=== PATIENT | male | born 1990 | race Hispanic/Latino ===

== ENCOUNTER 2020-05-26 02:28 | Emergency (ER) | payer OTHER ==
--- NOTE | 2020-05-26 03:17 | ER ---
Nurse's Notes [facility] Name: Rick Balderas Age: 29 yrs Sex: Male : 1990 Arrival Date: 05/26/2020 Time: 02:30 Bed 7 Private MD: Diagnosis: Fever, unspecified;Acute tonsillitis Presentation: 05/26 03:01 Chief complaint: Patient states: Pt reports he has been having fever for the past 4 ea days. States his throat has been sore. Took covid test 2 days ago and was negative. Coronavirus screen: At this time, the client does not indicate any symptoms associated with coronavirus-19. Ebola Screen: No symptoms or risks identified at this time. Initial Sepsis Screen: Does the patient meet any 2 criteria? No. Patient's initial sepsis screen is negative. Does the patient have a suspected source of infection? No. Patient's initial sepsis screen is negative. Risk Assessment: Do you want to hurt yourself or someone else? Patient reports no desire to harm self or others. Onset of symptoms was May 26, 2020. 03:01 Method Of Arrival: Ambulatory ea 03:01 Acuity: ASTER 3 ea Triage Assessment: 03:03 General: Appears in no apparent distress. Behavior is appropriate for age. Pain: ea Complains of pain in left aspect of posterior pharynx and right aspect of posterior pharynx. Historical: - Allergies: 03:00 No Known Allergies; rr5 - Home Meds: 03:00 None [Active]; rr5 - PMHx: 03:00 None; rr5 - PSHx: 03:00 None; rr5 - Immunization history:: Adult Immunizations up to date. - Family history:: not pertinent. - Social history:: Smoking status: Patient denies any tobacco usage or history of. Screenin:03 Abuse screen: Denies threats or abuse. Nutritional screening: No deficits noted. ea Tuberculosis screening: No symptoms or risk factors identified. Fall Risk None identified. Assessment: 03:04 General: Appears in no apparent distress. Behavior is calm, cooperative, appropriate ea for age. Pain: Complains of pain in right aspect of posterior pharynx and left aspect of posterior pharynx. Neuro: Level of Consciousness is awake, alert, obeys commands, Oriented to person, place, time. Respiratory: Airway is patent Respiratory effort is even, unlabored, Respiratory pattern is regular, symmetrical. Derm: Skin is pink, warm \T\ dry. 03:41 Reassessment: Patient appears in no apparent distress at this time. Patient is alert, rr5 oriented x 3, equal unlabored respirations, skin warm/dry/pink. discharge instruction given and explained without complaints made. Vital Signs: 02:50 BP 122 / 80; Pulse 134; Temp 101.2; Pulse Ox 98% on R/A; tt3 03:05 Weight 79.38 kg; Height 5 ft. 5 in. (165.10 cm); ea 03:06 BP 118 / 76; Pulse 121; Resp 18; Pulse Ox 97% on R/A; ea 03:40 BP 118 / 76; Pulse 110; Resp 19; Temp 100.9; Pulse Ox 99% ; rr5 03:05 Body Mass Index 29.12 (79.38 kg, 165.10 cm) ea ED Course: 02:30 Patient arrived in ED. cf2 02:49 Campbell Medrano MD is Attending Physician. miles 02:55 Lavell Alarcon RN is Primary Nurse. rr5 03:03 Triage completed. ea 03:03 Arm band placed on right wrist. Patient placed in an exam room, on a stretcher, on ea pulse oximetry. 03:03 Patient has correct armband on for positive identification. Bed in low position. Call ea light in reach. 03:41 No provider procedures requiring assistance completed. Patient did not have IV access rr5 during this emergency room visit. Administered Medications: 03:13 Not Given (Duplicate Order): Clindamycin 5 mg/kg IVPB at calculated rate once miles 03:15 Drug: Bicillin L-A 1.2 million units Route: IM; Site: right gluteus; ea 03:42 Follow up: Response: No adverse reaction rr5 03:21 Drug: Motrin 600 mg Route: PO; ea 03:42 Follow up: Response: No adverse reaction; Temperature is decreased rr5 03:21 Drug: Clindamycin 300 mg Route: PO; ea 03:42 Follow up: Response: No adverse reaction rr5 Outcome: 03:17 Discharge ordered by . miles 03:41 Discharged to home ambulatory. rr5 03:41 Condition: stable 03:41 Discharge instructions given to patient, Instructed on discharge instructions, follow up and referral plans. medication usage, Demonstrated understanding of instructions, follow-up care, medications, Prescriptions given X 1. 03:42 Patient left the ED. rr5 Signatures: Campbell Medrano MD MD cha Antunez, Elena RN Lavell Willoughby ea, RN RN rr5 Marianna Maxwell cf2 Gatito, Zachary tt3
--- NOTE | 2020-05-26 03:17 | EDPHYS ---
Physician Documentation [facility] Name: Rick Balderas Age: 29 yrs Sex: Male : 1990 Arrival Date: 05/26/2020 Time: 02:30 Bed 7 Private MD: ED Physician Campbell Medrano HPI: 05/26 03:00 This 29 yrs old Male presents to ER via Unassigned with complaints of Fever. miles 03:00 The patient reports fever, that was measured at 101 degrees Fahrenheit. Onset: The miles symptoms/episode began/occurred 3 day(s) ago. Modifying factors: there are no obvious modifying factors. Associated signs and symptoms: Pertinent positives: cough, sore throat, swelling. Severity of symptoms: At their worst the symptoms were mild moderate in the emergency department the symptoms are unchanged. The patient has not experienced similar symptoms in the past. Historical: - Allergies: 03:00 No Known Allergies; rr5 - Home Meds: 03:00 None [Active]; rr5 - PMHx: 03:00 None; rr5 - PSHx: 03:00 None; rr5 - Immunization history:: Adult Immunizations up to date. - Family history:: not pertinent. - Social history:: Smoking status: Patient denies any tobacco usage or history of. ROS: 03:08 Eyes: Negative for injury, pain, redness, and discharge, Neck: Negative for injury, miles pain, and swelling, Cardiovascular: Negative for chest pain, palpitations, and edema, Respiratory: Negative for shortness of breath, cough, wheezing, and pleuritic chest pain, Abdomen/GI: Negative for abdominal pain, nausea, vomiting, diarrhea, and constipation, Back: Negative for injury and pain, : Negative for injury, bleeding, discharge, and swelling, MS/Extremity: Negative for injury and deformity, Skin: Negative for injury, rash, and discoloration, Neuro: Negative for headache, weakness, numbness, tingling, and seizure, Psych: Negative for depression, anxiety, suicide ideation, homicidal ideation, and hallucinations, Allergy/Immunology: Negative for hives, rash, and allergies, Endocrine: Negative for neck swelling, polydipsia, polyuria, polyphagia, and marked weight changes, Hematologic/Lymphatic: Negative for swollen nodes, abnormal bleeding, and unusual bruising. 03:08 Constitutional: Positive for 03:08 ENT: Positive for sore throat. Exam: 03:08 Constitutional: This is a well developed, well nourished patient who is awake, alert, miles and in no acute distress. Head/Face: Normocephalic, atraumatic. Eyes: Pupils equal round and reactive to light, extra-ocular motions intact. Lids and lashes normal. Conjunctiva and sclera are non-icteric and not injected. Cornea within normal limits. Periorbital areas with no swelling, redness, or edema. Neck: Trachea midline, no thyromegaly or masses palpated, and no cervical lymphadenopathy. Supple, full range of motion without nuchal rigidity, or vertebral point tenderness. No Meningismus. Chest/axilla: Normal chest wall appearance and motion. Nontender with no deformity. No lesions are appreciated. Cardiovascular: Regular rate and rhythm with a normal S1 and S2. No gallops, murmurs, or rubs. Normal PMI, no JVD. No pulse deficits. Respiratory: Lungs have equal breath sounds bilaterally, clear to auscultation and percussion. No rales, rhonchi or wheezes noted. No increased work of breathing, no retractions or nasal flaring. Abdomen/GI: Soft, non-tender, with normal bowel sounds. No distension or tympany. No guarding or rebound. No evidence of tenderness throughout. Back: No spinal tenderness. No costovertebral tenderness. Full range of motion. Male : Normal genitalia with no discharge or lesions. Skin: Warm, dry with normal turgor. Normal color with no rashes, no lesions, and no evidence of cellulitis. 03:08 ENT: Posterior pharynx: is normal, no acute changes, swelling, that is mild, that is moderate, erythema, exudate. Vital Signs: 02:50 BP 122 / 80; Pulse 134; Temp 101.2; Pulse Ox 98% on R/A; tt3 03:05 Weight 79.38 kg; Height 5 ft. 5 in. (165.10 cm); ea 03:06 BP 118 / 76; Pulse 121; Resp 18; Pulse Ox 97% on R/A; ea 03:40 BP 118 / 76; Pulse 110; Resp 19; Temp 100.9; Pulse Ox 99% ; rr5 03:05 Body Mass Index 29.12 (79.38 kg, 165.10 cm) ea MDM: 02:49 Patient medically screened. [facility] 03:13 Differential diagnosis: bacterial infection, laryngitis, peritonsillar abscess [facility] pharyngitis. Data reviewed: vital signs, nurses notes. Data interpreted: electronic device monitor: rate is 121 beats/min, rhythm is regular, Pulse oximetry: on room air is 97 %. Counseling: I had a detailed discussion with the patient and/or guardian regarding: the historical points, exam findings, and any diagnostic results supporting the discharge/admit diagnosis, lab results, the need for outpatient follow up, for definitive care, a family practitioner. 03:15 ED course: NONE TOXIC , POSITIVE PO, NOT TOXIC. [facility] 05/26 03:00 Order name: PO challenge; Complete Time: 03:21 [facility] Administered Medications: 03:13 Not Given (Duplicate Order): Clindamycin 5 mg/kg IVPB at calculated rate once [facility] 03:15 Drug: Bicillin L-A 1.2 million units Route: IM; Site: right gluteus; ea 03:42 Follow up: Response: No adverse reaction rr5 03:21 Drug: Motrin 600 mg Route: PO; ea 03:42 Follow up: Response: No adverse reaction; Temperature is decreased rr5 03:21 Drug: Clindamycin 300 mg Route: PO; ea 03:42 Follow up: Response: No adverse reaction rr5 Disposition: 05/26/20 03:17 Discharged to Home. Impression: Fever, unspecified, Acute tonsillitis. - Condition is Stable. - Discharge Instructions: Fever, Adult, Tonsillitis, Tonsillitis, [id number], Fever, Adult, [id number]. - Prescriptions for Clindamycin HCl 300 mg Oral Capsule - take 1 capsule by ORAL route every 6 hours for 7 days; 28 capsule. - Medication Reconciliation Form, Thank You Letter, Antibiotic Education, Prescription Opioid Use, Work release form form. - Follow up: Private Physician; When: 2 - 3 days; Reason: Recheck today's complaints, Continuance of care, Re-evaluation by your physician. - Problem is new. - Symptoms have improved. Signatures: Campbell Medrano MD MD cha Antunez, Elena, RN RN Lavell Shi RN RN rr5 Corrections: (The following items were deleted from the chart) 03:42 03:17 05/26/2020 03:17 Discharged to Home. Impression: Fever, unspecified; Acute rr5 tonsillitis. Condition is Stable. Forms are Medication Reconciliation Form, Thank You Letter, Antibiotic Education, Prescription Opioid Use. Follow up: Private Physician; When: 2 - 3 days; Reason: Recheck today's complaints, Continuance of care, Re-evaluation by your physician. Problem is new. Symptoms have improved. miles
[2020-05-26] MEDS ORDERED: IBUPROFEN 200 MG TAB PO ONE (03:21)
[2020-05-26] MEDS ORDERED: IBUPROFEN 400 MG TAB ONE (03:22)
[2020-05-26] MEDS ORDERED: PEN G BENZ LA 1.2MU/2ML SYRINGE IM ONE (03:22)
[2020-05-29 20:29] VITALS: BP 118/76
[2020-05-29 20:30] VITALS: TEMP 100.9; O2SAT 99
== END 2020-05-26 03:42 | disposition home or self-care (01) ==
LOC: ER 02:28
DX: J03.90 Acute tonsillitis, unspecified (principal)
CPT/HCPCS: 96372; 99283; J0561